=== PATIENT | male | born 1980 | race Caucasian/White ===

== ENCOUNTER → 2020-07-01 | Outpatient (CLI) | payer BC | END | disposition home or self-care (01) | LOC: CARD 08:59 | PROVIDERS: ATTEND Family Medicine | DX: I48.92 Unspecified atrial flutter (principal) ==

== ENCOUNTER → 2020-12-21 | Outpatient (CLI) | payer BC ==
[2020-12-21 09:33] LABS: BASO # 0.1 10*3/uL (0.0-0.1); BASO % 0.7 % (0.0-1.0); EOS # 0.1 10*3/uL (0.0-0.4); EOS % 1.3 % (1.0-4.0); HEMATOCRIT 46.6 % (42.0-52.0); LYMPH # 2.2 10*3/uL (1.3-4.4); LYMPH % 22.4 % (27.0-41.0); MEAN CELL VOLUME 84.9 fl (80.0-94.0); MEAN CORPUSCULAR HGB 28.4 pg (27.0-31.0); MEAN CORPUSCULAR HGB CONC 33.5 g/dl (33.0-37.0); MEAN PLATELET VOLUME 8.7 fl (9.6-12.3); MONO # 0.9 10*3/uL (0.1-1.0); NEUT # 6.4 10*3/uL (2.3-7.9); PLATELET COUNT AUTOMATED 292 10*3/uL (130-400); RED BLOOD COUNT 5.49 10*6/uL (4.50-5.90); RED CELL DISTRI WIDTH 12.9 % (0-14.5); WHITE BLOOD COUNT 9.7 10*3/uL (4.8-10.8)
[2020-12-21 09:51] LABS: ALBUMIN 4.1 gm/dl (3.1-4.5); ALKALINE PHOSPHATASE 62 U/L (45-117); BUN 13 mg/dl (7-24); CHLORIDE 108 mmol/L (98-107); CHOLESTEROL 127 mg/dL (<200); LDL CHOLESTEROL 66 mg/dL (9-159); POTASSIUM 4.1 mmol/L (3.5-5.1); SGOT/AST 22 IU/L (3-35); SGPT/ALT 50 U/L (12-78); SODIUM 139 mmol/L (136-145); TRIGLYCERIDES 66 mg/dl (<150)
[2020-12-21 09:58] LABS: THYROID STIM HORMONE (HS) 0.984 uIU/ml (0.358-4.75)
[2020-12-21 11:12] LABS: VITAMIN D, 25-HYDROXY 45.2 ng/mL (30-100)
[2020-12-23 15:07] LABS: RENIN ACTIVITY (PLASMA) 4.106 ng/mL/hr (0.167-5.380)
[2020-12-24 17:06] LABS: METANEPHRINE, PLASMA <10.0 pg/mL (0.0-88.0); NORMETANEPHRINE, PLASMA 32.8 pg/mL (0.0-125.8)
[2020-12-27 13:06] LABS: ALDOSTERONE, SERUM 7.5 ng/dL (0.0-30.0); ALDOSTERONE/RENIN RATIO 1.8 (0.0-30.0)
== END | disposition home or self-care (01) ==
LOC: US 07:30 → LAB 07:39
PROVIDERS: ATTEND Internal Medicine Nephrology
DX: I10 Essential (primary) hypertension (principal); E55.9 Vitamin D deficiency, unspecified

== ENCOUNTER → 2021-02-02 | Outpatient (CLI) | payer BC ==
[2021-02-02 12:44] LABS: BUN 17 mg/dl (7-24); CHLORIDE 105 mmol/L (98-107); CREATININE 0.96 mg/dL (0.70-1.30); POTASSIUM 3.6 mmol/L (3.5-5.1); SODIUM 139 mmol/L (136-145)
== END | disposition home or self-care (01) ==
LOC: LAB 12:01
PROVIDERS: ATTEND Internal Medicine
DX: I10 Essential (primary) hypertension (principal)

== ENCOUNTER 2022-01-08 17:36 | Emergency (ER) | payer BC ==
[~2022-01-08] VITALS: Ht 180.3 cm; Wt 108.9 kg
== END 2022-01-08 19:30 | disposition left against medical advice (07) ==
LOC: ED 17:36
DX: R50.9 Fever, unspecified (principal); R19.7 Diarrhea, unspecified; Z53.21 Procedure and treatment not carried out due to patient leaving prior to being seen by health care provider

== ENCOUNTER → 2022-11-21 | Outpatient (CLI) | payer MEDICAID | END | disposition home or self-care (01) | LOC: RESCLI 08:14 | PROVIDERS: ATTEND Internal Medicine | DX: J45.909 Unspecified asthma, uncomplicated (principal); I10 Essential (primary) hypertension; K21.9 Gastro-esophageal reflux disease without esophagitis; R73.09 Other abnormal glucose; E83.42 Hypomagnesemia; Z79.899 Other long term (current) drug therapy; Z72.89 Other problems related to lifestyle; Z82.49 Family history of ischemic heart disease and other diseases of the circulatory system ==